=== PATIENT | female | born 1965 | race Caucasian/White ===

== ENCOUNTER 2016-12-22 15:36 | Emergency (ER) | payer OTHER ==
[~2016-12-22] VITALS: Ht 165.1 cm; Wt 65.0 kg
[~2016-12-22 15:36] MED LIST: ALPR.25 PO; AMBI5TAB PO
[2016-12-22 15:37] VITALS: BP 122/77; PULSE 97; TEMP 98.8; O2SAT 100
[2016-12-22 16:00] VITALS: BP 129/78
[2016-12-22] MEDS ORDERED: TETANUS/DIPHTHERIA TOXOID ADULT 0.5 ML VIAL IM ONE (16:00)
--- NOTE | 2016-12-22 16:08 | PD ---
HPI Chief Complaint: Laceration/Skin Injury Time Seen by Provider: 15:57 Travel History International Travel<30 days: No Contact w/Intl Traveler<30days: No Traveled to known affect area: No History of Present Illness HPI 51-year-old female here with complaint of right leg laceration. Shortly prior to arrival patient was opening up a 5 gallon drum of paint using a journal box inspector when she lacerated her right leg. Superficial per patient, hemostatic, no loss of function. Unknown last tetanus. PFSH Past Medical History Cardiovascular Problems: No Diminished Hearing: No Reproductive: Yes (endometrial ablation ) Tubal Ligation: Yes (1994) Past Surgical History Gynecologic Surgery: Yes (TUBAL ) Social History Alcohol Use: Yes (- ) Tobacco Use: Yes (1/3PPD ON/OFF FOR 10+ YEARS) Substance Use: Yes Allergies-Medications (Allergen,Severity, Reaction): Coded Allergies: No Known Allergies (Verified , 10/01/15) Reported Meds & Prescriptions Reported Meds & Active Scripts Active Xanax 0.25 Mg (Alprazolam) Alprazolam 0.25 mg Tab 1 Tab PO BID Reported Ambien (Zolpidem Tartrate) 5 Mg Tab 5 Mg PO HS PRN Review of Systems Except as stated in HPI: all other systems reviewed are Neg Physical Exam Narrative GENERAL: Well-appearing female in no acute distress SKIN: Focused skin assessment warm/dry. HEAD: Normocephalic. CARDIOVASCULAR: Regular rate and rhythm. RESPIRATORY: No accessory muscle use. MUSCULOSKELETAL: Right leg with laceration of the medial thigh involving the subcutaneous tissue, slightly gaping. NEUROLOGICAL: Awake and alert. Normal gait. Normal speech. PSYCHIATRIC: Appropriate mood and affect; insight and judgment normal. Data Data Last Documented VS Vital Signs Date Time Temp Pulse Resp B/P Pulse Ox O2 Delivery O2 Flow Rate FiO2 12/22/16 16:05 16 12/22/16 15:37 98.8 97 122/77 100 Orders Tetanus/Diphtheria Tox Adult (Tetanus/Di (12/22/16 16:00) MDM Medical Decision Making Medical Screen Exam Complete: Yes Emergency Medical Condition: Yes Medical Record Reviewed: Yes Differential Diagnosis 51-year-old female here with laceration of the right leg, will require repair Narrative Course Laceration repaired Procedures Procedure Narrative LACERATION LOCATION: Right medial thigh LENGTH: 3.5 cm NUMBER OF STITCHES/TAB: 4 REPAIR: The area of the laceration was prepped with Betadine and sterilely draped. The laceration was infiltrated with 1% lidocaine. The wound was copiously irrigated and explored without evidence of foreign body, tendon injury or neurovascular injury. The wound was closed using tab. This was a single layer repair. A sterile dressing was applied. The patient was advised to keep the dressing clean and dry. Patient tolerated the procedure well. Diagnosis Primary Impression: Laceration of leg Qualified Code: S81.811A - Laceration of leg, right, initial encounter Referrals: Primary Care Physician call for appointment Additional Instructions: Staple removal in approximately 10 days Med/Other Pt SpecificInfo: No Change to Meds Disposition: 01 DISCHARGE HOME Condition: Stable Elisa Harrington MD Dec 22, 2016 16:08
== END 2016-12-22 17:12 | disposition home or self-care (01) ==
LOC: NEPD 15:36
DX: S71.111A Laceration without foreign body, right thigh, initial encounter (principal); Z23 Encounter for immunization; Z72.0 Tobacco use; Z87.42 Personal history of other diseases of the female genital tract; W27.8XXA Contact with other nonpowered hand tool, initial encounter
CPT/HCPCS: 12002; 90471; 90714